=== PATIENT | male | born 1960 | race Two or more races ===

== ENCOUNTER 2024-07-11 08:33 | Outpatient (CLI) | payer OTHER | END 2024-07-11 08:41 | disposition home or self-care (01) | LOC: RAD 08:33 | PROVIDERS: ATTEND Internal Medicine Cardiovascular Disease | DX: M19.90 Unspecified osteoarthritis, unspecified site (principal); M46.47 Discitis, unspecified, lumbosacral region ==

== ENCOUNTER 2024-07-18 08:48 | Outpatient (CLI) | payer OTHER ==
[2024-07-18 09:34] LABS: HEMATOCRIT 47.9 % (39.0-48.0); HEMOGLOBIN 15.8 g/dL (13-16.00); MEAN CELL VOLUME 86.4 fL (80.0-100.00); MEAN CORPUSCULAR HEMOGLOBIN 28.6 pg (27.00-32.0); MEAN CORPUSCULAR HGB CONC 33.1 g/dl (32.0-36.0); PLATELET COUNT 296 K/uL (150-450); RED BLOOD COUNT 5.54 M/uL (4.00-6.00); RED CELL DISTRIBUTION WIDTH 15.4 % (11.5-14.5)
[2024-07-18 10:08] LABS: PH,URINE 6.5 (5.0-8.0); URINE APPEARANCE Clear; URINE BILIRRUBIN Negative (NEGATIVE); URINE BLOOD Negative; URINE COLOR Yellow; URINE GLUCOSE Negative (NEGATIVE); URINE KETONE Negative (NEGATIVE); URINE LEUKOCYTE Trace; URINE NITRATE Negative; URINE PROTEIN Negative (NEGATIVE); URINE UROBILINOGEN 0.2 E.U./dl
[2024-07-18 10:12] LABS: URINE EPITHELIAL CELLS 2.5 uL (0.0-38.8); URINE RBC 2.3 uL (0.0-20.8); URINE WBC 93.3 uL (0.0-23.2)
[2024-07-18 10:13] LABS: ob NEGATIVE (NEGATIVE)
[2024-07-18 10:57] LABS: URIC ACID 4.3 mg/dL (3.5-8.5)
[2024-07-18 10:59] LABS: ALBUMIN 3.9 gm/dL (3.4-5.0); BILIRUBIN TOTAL 0.41 mg/dL (0.3-1.2); CALCIUM 9.3 mg/dL (8.5-10.1); CHOL HDL RATIO 5.9 (0-5.0); CREATININE SERUM 1.02 mg/dL (0.70-1.30); GFR 73.3; GLOBULINA 3.5 G/DL (2.4-3.5); POTASSIUM 4.84 mEq/L (3.5-5.1); T4 TOTAL 11.07 UG/DL (4.5-12.1); TOTAL PROTEIN 7.4 gm/dL (6.4-8.2); TSH 1.52 uIU/mL (0.358-3.74)
[2024-07-18 11:00] LABS: PROSTATIC SPECIFIC ANTIGEN 10.9 NG/ML (0.010-4.00)
[2024-07-18 12:26] LABS: T3 TOTAL 1.41 ng/ml (0.846-2.02); VITAMIN D3 25 HYDROXY 20.9 ng/ml (30-120)
== END 2024-07-18 13:02 | disposition home or self-care (01) ==
LOC: LAB 08:48
PROVIDERS: ATTEND Internal Medicine Cardiovascular Disease
DX: E11.9 Type 2 diabetes mellitus without complications (principal); I10 Essential (primary) hypertension; E03.9 Hypothyroidism, unspecified; E78.2 Mixed hyperlipidemia; D64.9 Anemia, unspecified; Z12.11 Encounter for screening for malignant neoplasm of colon; N40.0 Benign prostatic hyperplasia without lower urinary tract symptoms; E55.9 Vitamin D deficiency, unspecified; M81.0 Age-related osteoporosis without current pathological fracture; M19.90 Unspecified osteoarthritis, unspecified site; M10.9 Gout, unspecified

== ENCOUNTER → 2024-09-06 08:38 | Outpatient (CLI) | payer OTHER ==
[2024-09-06 09:42] LABS: BASO % 0.2 % (0.1-1.2); EOS # 0.15 (0.04-0.54); HEMATOCRIT 34.9 % (40.1-51.0); HEMOGLOBIN 11.8 g/dL (13.7-17.5); LYMPH # 1.55 (1.18-3.74); LYMPH % 30.7 % (19.3-53.1); MEAN CORPUSCULAR HEMOGLOBIN 28.4 pg (25.6-32.2); MONO # 0.42 (0.24-0.82); MONO % 8.3 % (4.7-12.5); NEUT # 2.91 (1.56-6.13); NEUT % 57.6 % (34.0-71.1); PLATELET COUNT 241 K/uL (163-369); RED BLOOD COUNT 4.16 M/uL (4.63-6.08); RED CELL DISTRIBUTION WIDTH 14.5 % (11.6-14.4)
[2024-09-06 10:23] LABS: ALBUMIN 3.4 gm/dL (3.4-5.0); BILIRUBIN TOTAL 0.42 mg/dL (0.3-1.2); CALCIUM 8.5 mg/dL (8.5-10.1); CHOL HDL RATIO 3.3 (0-5.0); CREATININE SERUM 0.95 mg/dL (0.70-1.30); GFR 79.56; GLOBULINA 2.9 G/DL (2.4-3.5); POTASSIUM 4.52 mEq/L (3.5-5.1); T4 FREE 1.08 NG/ML (0.76-1.46); TOTAL PROTEIN 6.3 gm/dL (6.4-8.2); TSH 1.36 uIU/mL (0.358-3.74)
== END | disposition home or self-care (01) ==
LOC: LAB 08:38
DX: I10 Essential (primary) hypertension (principal); D50.9 Iron deficiency anemia, unspecified; E78.5 Hyperlipidemia, unspecified; E03.9 Hypothyroidism, unspecified; E11.9 Type 2 diabetes mellitus without complications

== ENCOUNTER 2025-02-17 13:17 | Outpatient (CLI) | payer OTHER ==
[2025-02-17 13:51] LABS: BASO % 0.2 % (0.1-1.2); EOS # 0.16 (0.04-0.54); EOS % 2.8 % (0.7-7.0); LYMPH # 1.87 (1.18-3.74); LYMPH % 33.0 % (19.3-53.1); MEAN PLATELET VOLUME 10.70 fl (9.4-12.4); MONO # 0.66 (0.24-0.82); MONO % 11.6 % (4.7-12.5); NEUT # 2.96 (1.56-6.13); NEUT % 52.2 % (34.0-71.1); RED CELL DISTRIBUTION WIDTH 14.6 % (11.6-14.4)
[2025-02-17 14:37] LABS: ALT/SGPT 32.0 U/L (12-78); AST/SGOT 25.0 U/L (15-37); BILIRUBIN TOTAL 0.4 mg/dL (0.3-1.2); BUN CREA RATIO 20.0 (7.0-25.0); CHOL HDL RATIO 3.3 (0-5.0); CREATININE SERUM 1.07 mg/dL (0.70-1.30); GFR 69.36; GLOBULINA 3.1 G/DL (2.4-3.5); GLUCOSE FASTING 123.0 mg/dL (65-100); HDL 43.0 mg/dl (40-60); LDL 50.0 mg/dl (0-130); OSMOLALITY SERUM 286.0 MOSM/KG (275-295); T4 FREE 1.06 NG/ML (0.76-1.46); TSH 1.3 uIU/mL (0.358-3.74); VLDL 47.0 (0-39)
== END 2025-02-17 13:21 | disposition home or self-care (01) ==
LOC: LAB 13:17
DX: D50.0 Iron deficiency anemia secondary to blood loss (chronic) (principal); I10 Essential (primary) hypertension; E78.5 Hyperlipidemia, unspecified; E11.9 Type 2 diabetes mellitus without complications; E03.9 Hypothyroidism, unspecified